=== PATIENT | male | born 1960 | race Caucasian/White ===

== ENCOUNTER 2019-04-24 05:30 | Day surgery (SDC) | payer MEDICAID ==
[2019-04-16 16:25] LABS: BASOPHILS % (AUTO) 0.4 % (0-1); EOSINOPHILS # (AUTO) 0.1 X10'3 (0-0.9); EOSINOPHILS % (AUTO) 0.7 % (0-6); LYMPHOCYTES % (AUTO) 9.5 % (21-51); MEAN CORPUSCULAR HGB CONC 34.1 g/dL (33.0-36.5); MEAN CORPUSCULAR VOLUME 99.7 FL (78-98); MEAN PLATELET VOLUME 9.6 FL (7.4-10.4); MONOCYTES # (AUTO) 0.8 X10'3 (0-0.9); MONOCYTES % (AUTO) 7.8 % (2-12); NEUTROPHILS # (AUTO) 8.4 X10'3 (1.8-7.7); NEUTROPHILS % (AUTO) 81.6 % (42-75); PRE OP PLATELET COUNT 215 X10'3 (140-440); RED BLOOD COUNT 4.41 X10'6 (4.70-6.10)
[2019-04-16 16:40] LABS: ALBUMIN 3.4 G/DL (3.4-5.0); ALBUMIN/GLOBULIN RATIO 0.9 (1.1-1.5); ALKALINE PHOSPHATASE 113 IU/L (46-116); BLOOD UREA NITROGEN 17 MG/DL (7-18); BUN/CREATININE RATIO 15.2 (5.4-32.0); CALCIUM 9.3 MG/DL (8.5-10.1); CHLORIDE 104 MMOL/L (99-107); CREATININE 1.12 MG/DL (0.60-1.10); PRE OP ALT 55 U/L (30-65); PRE OP ANION GAP 9 (8-16); PRE OP AST 24 U/L (10-37); PRE OP BILIRUB, TOTAL 0.4 MG/DL (0.0-1.0); PRE OP GLUCOSE 93 MG/DL (70-104); PRE OP SODIUM 142 MMOL/L (135-145); TOTAL CARBON DIOXIDE 29.3 MMOL/L (24-32); TOTAL PROTEIN 7.2 G/DL (6.4-8.2); eGFR 67 ML/MIN
[2019-04-16 16:41] LABS: PRE OP POTASSIUM 4.3 MMOL/L (3.4-5.1)
[~2019-04-24] VITALS: Ht 182.9 cm; Wt 108.4 kg
[2019-04-24] VITALS (8 sets, daily range): BP systolic 118–142; BP diastolic 73–96
[~2019-04-24 05:30] MED LIST: IBUP-1984 PO; IBUP-1985 PO; LISI-604 PO; famotidine 10mg tablet PO ONE; ringers solution, lacted 1,000 ML IV SCH
[2019-04-24] MEDS ORDERED: MESSAGE TO NURSING PO ONE (06:00)
[2019-04-24] MEDS ORDERED: cefazolin/dext.iso 2gm/100ml 100 ML IV ONE (06:05)
[2019-04-24] MEDS ORDERED: LIDOcaine 1% (10mg/ml) 2ml vial ONE (06:06)
[2019-04-24] MEDS ORDERED: triamcinolone acetonide 40mg/ml inj ONE (06:48)
[2019-04-24] MEDS ORDERED: BUPIVAcaine/PF 2.5 mg/ml (0.25%) 30ml vial ONE (06:48)
[2019-04-24] MEDS ORDERED: sevoflurane 250ml liquid IH ONE (07:12)
[2019-04-24] MEDS ORDERED: midazolam 2 mg/2 ml injection ONE (07:19)
[2019-04-24] MEDS ORDERED: fentaNYL/PF 50MCG/1 ML 2ML syringe ONE (07:19)
[2019-04-24] MEDS ORDERED: propofol inj 20 ML IV ONE (07:20)
[2019-04-24] MEDS ORDERED: acetaminophen 1,000mg/100ml IV 100 ML IV ONE ×2 (07:45→08:02)
[2019-04-24] MEDS ORDERED: ondansetron/PF 4mg/2ml inj IV PRN (07:50)
[2019-04-24] MEDS ORDERED: proCHLORperazine 10 MG/2 ml inj IV PRN (07:50)
[2019-04-24] MEDS ORDERED: morphine 4 MG/ML inj SYRINge IV PRN ×2 (07:50)
[2019-04-24] MEDS ORDERED: ringers solution, lacted 1,000 ML IV SCH (07:50)
[2019-04-24] MEDS ORDERED: meperidine/PF 25mg/ml syringe IV PRN ×2 (07:50)
--- NOTE | 2019-04-24 08:25 | NUR ---
Received from OR via [facility] accompanied by Anesthesiologist DR NORTH and report given by Anesthesiologist. PT DROWSY, DENIES PAIN, LEFT KNEE W/BIAS WRAP COVERING INCISION/DRSG, CDI. Addendum: 04/24/19 at 0843 by Cristiana Zuñiga RN Amended: Links added.
[2019-04-24] MEDS: meperidine/PF 25mg/ml syringe IV PRN ×2 (08:45→09:01)
--- NOTE | 2019-04-24 09:45 | NUR ---
D/C INSTRUCTIONS GIVEN AND GONE OVER W/PT WHO VERBALIZED UNDERSTANDING, PT D/CD TO HOME VIA W/C TO PRIVATE VEHICLE W/O INCIDENT. Addendum: 04/24/19 at 0954 by Cristiana Zuñiga RN Amended: Links added.
== END 2019-04-24 09:45 | disposition home or self-care (01) ==
LOC: PAS 05:30
PROVIDERS: ATTEND Orthopaedic Surgery
DX: S83.232A Complex tear of medial meniscus, current injury, left knee, initial encounter (principal); S83.282A Other tear of lateral meniscus, current injury, left knee, initial encounter; M94.262 Chondromalacia, left knee; M17.0 Bilateral primary osteoarthritis of knee; I10 Essential (primary) hypertension; G47.30 Sleep apnea, unspecified; F17.290 Nicotine dependence, other tobacco product, uncomplicated; E66.8 Other obesity; Z68.34 Body mass index [BMI] 34.0-34.9, adult; Z79.899 Other long term (current) drug therapy; Z98.890 Other specified postprocedural states; Z72.89 Other problems related to lifestyle; Z82.3 Family history of stroke; X58.XXXA Exposure to other specified factors, initial encounter; Y93.89 Activity, other specified; Y92.89 Other specified places as the place of occurrence of the external cause; Y99.8 Other external cause status
CPT/HCPCS: 29873; 29879; 29880; 36415; 80053; 82948; 85025; 93005; J0131; J2001; J2175; J2250; J2704; J3010; J3301; J3370; J3490; A4215; A4618; A6250; A6449; A7000; J7120

== ENCOUNTER 2019-10-28 09:53 | Emergency (ER) | payer MEDICAID ==
[~2019-10-28] VITALS: Ht 180.3 cm; Wt 109.5 kg
[~2019-10-28 09:53] MED LIST changes: -famotidine 10mg tablet PO ONE; -ringers solution, lacted 1,000 ML IV SCH
[2019-10-28 10:21] VITALS: BP 170/102
[2019-10-28] MEDS ORDERED: CHLO25CA10 PO (10:53)
== END 2019-10-28 11:03 | disposition home or self-care (01) ==
LOC: ER 09:53
DX: F10.20 Alcohol dependence, uncomplicated (principal); Z79.899 Other long term (current) drug therapy; Y90.9 Presence of alcohol in blood, level not specified
CPT/HCPCS: 99283

== ENCOUNTER 2020-10-05 10:40 | Day surgery (SDC) | payer MEDICAID ==
[2020-10-01 14:35] LABS: BASOPHILS % (AUTO) 0.5 % (0-1); EOSINOPHILS # (AUTO) 0.2 X10'3 (0-0.9); EOSINOPHILS % (AUTO) 2.9 % (0-6); MEAN CORPUSCULAR HEMOGLOBIN 31.3 PG (27.0-31.0); MEAN CORPUSCULAR HGB CONC 33.3 g/dL (33.0-36.5); MEAN CORPUSCULAR VOLUME 93.9 FL (78-98); MONOCYTES # (AUTO) 0.6 X10'3 (0-0.9); MONOCYTES % (AUTO) 9.2 % (2-12); NEUTROPHILS # (AUTO) 4.4 X10'3 (1.8-7.7); NEUTROPHILS % (AUTO) 71.4 % (42-75); PRE OP HEMATOCRIT 38.4 % (42.0-52.0); PRE OP HEMOGLOBIN 12.8 g/dL (14.0-17.9); PRE OP PLATELET COUNT 228 X10'3 (140-440); RED BLOOD COUNT 4.09 X10'6 (4.70-6.10)
[2020-10-01 14:42] LABS: CLARITY,URINE CLEAR (Clear); COLOR,URINE YELLOW (Yellow); GLUCOSE, URINE NEGATIVE (Neg); KETONES,URINE NEGATIVE (Neg); LEUKOCYTE ESTERASE ,URINE NEGATIVE (Neg); NITRITES, URINE NEGATIVE (Neg); OCCULT BLOOD,URINE NEGATIVE (Neg); PROTEIN,URINE NEGATIVE (Neg); UROBILINOGEN,URINE 0.2 E.U/dL (0.2-1.0)
[2020-10-01 14:43] LABS: UA COLLECTION TYPE NON-SPECIFIED
[2020-10-01 14:44] LABS: PRE OP PROTIME 10.6 SECONDS (9.0-12.0)
[2020-10-01 14:49] LABS: ALBUMIN 3.2 G/DL (3.4-5.0); ALBUMIN/GLOBULIN RATIO 0.8 (1.1-1.5); ALKALINE PHOSPHATASE 135 IU/L (46-116); BLOOD UREA NITROGEN 19 MG/DL (7-18); BUN/CREATININE RATIO 17.6 (5.4-32.0); CALCIUM 9.1 MG/DL (8.5-10.1); CHLORIDE 105 MMOL/L (99-107); CREATININE 1.08 MG/DL (0.60-1.10); PRE OP ALT 40 U/L (30-65); PRE OP ANION GAP 7 (8-16); PRE OP AST 21 U/L (10-37); PRE OP BILIRUB, TOTAL 0.3 MG/DL (0.0-1.0); PRE OP GLUCOSE 93 MG/DL (70-104); PRE OP POTASSIUM 3.9 MMOL/L (3.4-5.1); PRE OP SODIUM 142 MMOL/L (135-145); TOTAL CARBON DIOXIDE 29.6 MMOL/L (24-32); TOTAL PROTEIN 7.2 G/DL (6.4-8.2); eGFR 70 ML/MIN
[2020-10-05] VITALS (7 sets, daily range): BP systolic 114–168; BP diastolic 62–80
[~2020-10-05] VITALS: Ht 182.9 cm; Wt 108.4 kg
[~2020-10-05 10:40] MED LIST changes: +ATOR40TA72 PO; +CHOL20002 PO; +FOLI0.4T6 PO; -IBUP-1984 PO; -IBUP-1985 PO; +KETO5DRO11 EACHEYE; -LISI-604 PO; +LISI-790 PO; +PANT40TA54 PO; +THIA100T66 PO; +VENL75CA61 PO; +cefazolin/dext.iso 2gm/100ml IV ONE; +famotidine 20mg tablet PO ONE; +ringers solution, lacted 1,000 ML IV SCH
[2020-10-05] MEDS ORDERED: morphine 4 MG/ML inj SYRINge IV PRN (12:25)
[2020-10-05] MEDS ORDERED: ondansetron/PF 4mg/2ml inj IV PRN (12:25)
[2020-10-05] MEDS ORDERED: ringers solution, lacted 1,000 ML IV SCH (12:25)
[2020-10-05] MEDS ORDERED: hydrALAZINE 20mg/ml inj. IV PRN (12:25)
[2020-10-05] MEDS ORDERED: morphine 2 MG/ML inj. syringe IV PRN (12:25)
[2020-10-05] MEDS ORDERED: fentaNYL/PF 50MCG/1 ML 2ML syringe IV PRN ×2 (12:25)
[2020-10-05] MEDS ORDERED: labetalol 20mg/4ml (5mg/ml) syringe IV PRN (12:25)
[2020-10-05] MEDS ORDERED: fentaNYL/PF 50MCG/1 ML 2ML syringe ONE (13:05)
[2020-10-05] MEDS ORDERED: midazolam 1 mg/ML 2ml injection ONE (13:05)
[2020-10-05] MEDS ORDERED: LIDOcaine 2% (20mg/ml) 5ml vial ONE (13:07)
[2020-10-05] MEDS ORDERED: rocuronium 10mg/ml inj IV ONE (13:07)
[2020-10-05] MEDS ORDERED: ondansetron/PF 4mg/2ml inj ONE (13:07)
[2020-10-05] MEDS ORDERED: propofol inj 20 ML IV ONE (13:07)
[2020-10-05] MEDS ORDERED: dexamethasone sod phosphate 10mg/ml inj ONE (13:20)
[2020-10-05] MEDS ORDERED: glycopyrrolate 0.2mg/ml inj ONE (13:20)
[2020-10-05] MEDS ORDERED: sevoflurane 250ml liquid IH ONE (13:20)
[2020-10-05] MEDS ORDERED: neostigmine methylsulfate 1 MG/ML 10ml vial ONE (13:40)
--- NOTE | 2020-10-05 14:10 | NUR ---
ADMITTED TO PACU FROM OR ACCOMPANIED BY ANESTHESIA. INTIAL PHYSICAL ASSESSMENT DONE AND RECORDED. REPORT RECEIVED FROM ANESTHESIA.
--- NOTE | 2020-10-05 15:05 | NUR ---
DISCHARGE CRITERIA MET, DISCHARGE INSTRUCTIONS GIVEN, DEMONSTRATES VERBAL UNDERSTANDING. DISCHARGED HOME IN GOOD CONDITION.
== END 2020-10-05 15:05 | disposition home or self-care (01) ==
LOC: PAS 10:40
PROVIDERS: ATTEND Surgery
DX: T81.31XA Disruption of external operation (surgical) wound, not elsewhere classified, initial encounter (principal); I10 Essential (primary) hypertension; E78.5 Hyperlipidemia, unspecified; F41.9 Anxiety disorder, unspecified; G47.30 Sleep apnea, unspecified; F32.9 Major depressive disorder, single episode, unspecified; K21.9 Gastro-esophageal reflux disease without esophagitis; E66.9 Obesity, unspecified; Z68.32 Body mass index [BMI] 32.0-32.9, adult; Z79.01 Long term (current) use of anticoagulants; Z79.899 Other long term (current) drug therapy; Z20.822 Contact with and (suspected) exposure to COVID-19; Z98.890 Other specified postprocedural states; Y83.8 Other surgical procedures as the cause of abnormal reaction of the patient, or of later complication, without mention of misadventure at the time of the procedure; Y92.89 Other specified places as the place of occurrence of the external cause
CPT/HCPCS: 11042; 36415; 71046; 80053; 81003; 82948; 85025; 85610; 85730; 87070; 87075; 87077; 87186; J1100; J2001; J2250; J2405; J2704; J2710; J3010; J7030; U0003; U0005; A4618; A6253; A6446; A7000; J3490; J7120

== ENCOUNTER 2021-05-16 11:50 | Inpatient (IN) | payer MEDICAID ==
[~2021-05-16] VITALS: Ht 365.8 cm; Wt 116.0 kg
[~2021-05-16 11:50] MED LIST changes: -LISI-790 PO; +LISI5TAB22 PO; -cefazolin/dext.iso 2gm/100ml IV ONE; -famotidine 20mg tablet PO ONE; -ringers solution, lacted 1,000 ML IV SCH
[2021-05-16] MEDS ORDERED: normal saline 1000ML IV soln IVB ONE (15:00)
[2021-05-16 15:48] LABS: BASOPHILS # (AUTO) 0.1 X10'3 (0-0.2); BASOPHILS % (AUTO) 0.9 % (0-1); EOSINOPHILS # (AUTO) 0.2 X10'3 (0-0.9); EOSINOPHILS % (AUTO) 2.9 % (0-6); HEMOGLOBIN 13.9 g/dl (14.0-17.9); NEUTROPHILS # (AUTO) 5.1 X10'3 (1.8-7.7)
[2021-05-16 15:50] LABS: HEMATOCRIT 41.5 % (42.0-52.0); LYMPHOCYTES # (AUTO) 1.1 X10'3 (1.1-4.8); LYMPHOCYTES % (AUTO) 16.1 % (21-51); MEAN CORPUSCULAR HEMOGLOBIN 31.6 PG (27.0-31.0); MEAN CORPUSCULAR HGB CONC 33.5 g/dL (33.0-36.5); MEAN PLATELET VOLUME 11.3 FL (7.4-10.4); MONOCYTES # (AUTO) 0.4 X10'3 (0-0.9); MONOCYTES % (AUTO) 6.3 % (2-12); NEUTROPHILS % (AUTO) 73.8 % (42-75); PLATELET COUNT 225 X10'3 (140-440); RED BLOOD COUNT 4.42 X10'6 (4.70-6.10); WHITE BLOOD COUNT 6.9 X10'3 (4.5-11.0)
[2021-05-16] MEDS ORDERED: LISI10TA27 PO (15:57)
[2021-05-16 16:18] LABS: ALANINE AMINOTRANSFERASE 31 U/L (12-78); ALBUMIN 3.7 G/DL (3.4-5.0); ALBUMIN/GLOBULIN RATIO 1.3 (1.1-1.5); ALKALINE PHOSPHATASE 153 IU/L (46-116); ANION GAP 11 (8-16); ASPARTATE AMINO TRANSFERASE 16 U/L (10-37); BILIRUBIN,TOTAL 0.7 MG/DL (0.1-1.0); BLOOD UREA NITROGEN 18 MG/DL (7-18); CALCIUM 8.9 MG/DL (8.5-10.1); CHLORIDE 105 MMOL/L (99-107); GLUCOSE 90 MG/DL (70-104); LIPASE 74 U/L (73-393); POTASSIUM 4.3 MMOL/L (3.5-5.1); SODIUM 144 MMOL/L (135-145); TOTAL CARBON DIOXIDE 28.2 MMOL/L (24-32); TOTAL PROTEIN 6.5 G/DL (6.4-8.2); eGFR 62 ML/MIN
[2021-05-16 17:09] LABS: LARGE PLATELETS FEW; PLATELET ESTIMATE NORMAL
[2021-05-16] MEDS ORDERED: potassium CL 10mEq/100ml bag 100 ML IV PRN (17:35)
[2021-05-16] MEDS ORDERED: ondansetron/PF 4mg/2ml inj IV PRN (17:35)
[2021-05-16] MEDS ORDERED: magnesium 4gm in 100ml NS 100 ML IV PRN (17:35)
[2021-05-16] MEDS ORDERED: acetaminophen 325mg tablet PO PRN ×2 (17:35)
[2021-05-16] MEDS ORDERED: HYDROcodone/acetaminophen 5mg/325mg tablet PO PRN (17:35)
[2021-05-16] MEDS ORDERED: morphine 2 MG/ML inj. syringe IV PRN ×2 (17:35)
[2021-05-16] MEDS ORDERED: mag hydrox/Alum hydrox/simeth 30ml oral suspension PO PRN (17:35)
[2021-05-16] MEDS ORDERED: magnesium 2GM in 50ml NS 50 ML IV PRN (17:35)
[2021-05-16] MEDS ORDERED: diphenhydrAMINE 25mg capsule PO PRN (17:35)
[2021-05-16] MEDS ORDERED: bisacodyl 10mg suppository rectal RC PRN (17:35)
[2021-05-16] MEDS ORDERED: HYDROcodone/acetaminophen 10/325mg tab PO PRN (17:35)
[2021-05-16] MEDS ORDERED: magnesium hydroxide 30ml (MOM) UD suspension PO PRN (17:35)
[2021-05-16] MEDS ORDERED: magnesium Cl slow-release 64mg tablet PO PRN (17:35)
[2021-05-16] MEDS ORDERED: potassium Cl 20 mEq SR tablet PO PRN ×2 (17:35)
[2021-05-16] MEDS ORDERED: acetaminophen 650mg rectal suppository RC PRN (17:35)
[2021-05-16] MEDS ORDERED: LORazepam 2 mg/ml vial IV PRN (17:50)
[2021-05-16 18:30] LABS: HEMOGLOBIN A1C 5.9 % (4.5-6.2)
[2021-05-16] MEDS: normal saline 1000ml 1,000 ML IV SCH (18:50)
[2021-05-16] MEDS: thiamine 100mg tablet PO SCH (18:55)
[2021-05-16 19:05] LABS: CLARITY,URINE CLEAR (Clear); COLOR,URINE YELLOW (Yellow); GLUCOSE, URINE NEGATIVE (Neg); KETONES,URINE NEGATIVE (Neg); LEUKOCYTE ESTERASE ,URINE NEGATIVE (Neg); NITRITES, URINE NEGATIVE (Neg); OCCULT BLOOD,URINE NEGATIVE (Neg); PH,URINE 5.5 (4.8-8.0); PROTEIN,URINE NEGATIVE (Neg); UROBILINOGEN,URINE 0.2 E.U/dL (0.2-1.0)
[2021-05-16 19:14] LABS: UA COLLECTION TYPE CLN CATCH MIDSTREAM
[2021-05-16] MEDS: K and/or MAG REPLACEMENT MC SCH (20:00)
[2021-05-16] MEDS: docusate sod 100mg capsule PO SCH (20:09)
[2021-05-16 20:55] VITALS: BP 123/76
--- NOTE | 2021-05-16 20:59 | NUR ---
Report given by another HOME DEPOT REPblock hand who took pt to floor
[2021-05-17 00:02] VITALS: BP 100/77
[2021-05-17] MEDS: normal saline 1000ml 1,000 ML IV SCH ×3 (03:44→20:56)
--- NOTE | 2021-05-17 06:18 | NUR ---
Problems reprioritized. Patient report given, questions answered & plan of care reviewed with JEANNIE Coles.
[2021-05-17 06:42] LABS: BASOPHILS % (AUTO) 0.3 % (0-1); EOSINOPHILS # (AUTO) 0.2 X10'3 (0-0.9); HEMATOCRIT 37.9 % (42.0-52.0); HEMOGLOBIN 12.6 g/dl (14.0-17.9); LYMPHOCYTES % (AUTO) 15.7 % (21-51); MEAN CORPUSCULAR HEMOGLOBIN 31.5 PG (27.0-31.0); MEAN CORPUSCULAR HGB CONC 33.2 g/dL (33.0-36.5); MEAN CORPUSCULAR VOLUME 94.8 FL (78-98); MEAN PLATELET VOLUME 10.4 FL (7.4-10.4); MONOCYTES # (AUTO) 0.5 X10'3 (0-0.9); MONOCYTES % (AUTO) 8.4 % (2-12); NEUTROPHILS # (AUTO) 4.5 X10'3 (1.8-7.7); NEUTROPHILS % (AUTO) 72.6 % (42-75); PLATELET COUNT 173 X10'3 (140-440); RED CELL DISTRIBUTION WIDTH 13.9 % (11.5-14.5); WHITE BLOOD COUNT 6.2 X10'3 (4.5-11.0)
[2021-05-17 07:00] VITALS: BP 114/55
[2021-05-17 07:13] LABS: ALANINE AMINOTRANSFERASE 26 U/L (12-78); ALBUMIN 2.7 G/DL (3.4-5.0); ALKALINE PHOSPHATASE 123 IU/L (46-116); ANION GAP 10 (8-16); ASPARTATE AMINO TRANSFERASE 12 U/L (10-37); BILIRUBIN,TOTAL 0.7 MG/DL (0.1-1.0); BLOOD UREA NITROGEN 16 MG/DL (7-18); BUN/CREATININE RATIO 13.9 (5.4-32.0); CALCIUM 8.1 MG/DL (8.5-10.1); CHLORIDE 107 MMOL/L (99-107); CHOL/HDL RATIO 2.9 (0.00-4.99); CHOLESTEROL 103 MG/DL (0-200); CREATININE 1.15 MG/DL (0.60-1.10); GLUCOSE 94 MG/DL (70-104); HDL CHOLESTEROL 35 MG/DL (35-60); LDL CHOLESTEROL 52 MG/DL (50-100); MAGNESIUM 1.8 MG/DL (1.5-2.4); PHOSPHORUS 3.5 MG/DL (2.3-4.5); POTASSIUM 4.4 MMOL/L (3.5-5.1); SODIUM 142 MMOL/L (135-145); TOTAL CARBON DIOXIDE 25.1 MMOL/L (24-32); TOTAL PROTEIN 5.5 G/DL (6.4-8.2); TRIGLYCERIDES 83 MG/DL (20-135); eGFR 65 ML/MIN
[2021-05-17 07:26] VITALS: BP 122/68
[2021-05-17] MEDS: atorvastatin 20mg tablet PO SCH (07:28)
[2021-05-17] MEDS: lisinopril 10 MG tablet PO SCH (07:29)
[2021-05-17] MEDS: thiamine 100mg tablet PO SCH (07:29)
[2021-05-17] MEDS: cholecalciferol (vitamin D3) 1,000 unit (25mcg) tablet PO SCH (07:29)
[2021-05-17] MEDS: folic acid 1mg tablet PO SCH (07:29)
[2021-05-17] MEDS: K and/or MAG REPLACEMENT MC SCH ×2 (07:30→20:00)
[2021-05-17] MEDS: docusate sod 100mg capsule PO SCH ×2 (07:30→20:55)
--- NOTE | 2021-05-17 10:40 | NUR ---
Message: Sammy Up [phone] Apparently here are 2 charts for this pt. in computer. IN another chart was told that oral contrast and abd CT was ordered. It was not given. Would you like pt. to have a CT? Sharyn [phone]
[2021-05-17 11:39] VITALS: BP 150/90
--- NOTE | 2021-05-17 12:31 | NUR ---
Spoke to Surgeon Toi, he is ok with CT in Am - no quick prep, ok for pt. to eat, NPO after 0000. will review CT in Am and maybe surgery tomorrow.
[2021-05-17 18:00] VITALS: BP 112/69
--- NOTE | 2021-05-17 18:02 | NUR ---
Gave report to Melanie DENNIS.
--- NOTE | 2021-05-17 18:10 | NUR ---
Patient in room [facility]. I have received report from JEANNIE Coles and had the opportunity to ask questions and assume patient care.
[2021-05-17] MEDS: heparin, porcine 5000 units/ml vial SQ SCH (20:55)
[2021-05-17] MEDS: diatr meglu/diatrizoate 30ml oral sol.-(3 dose) bottle PO SCH (23:05)
--- NOTE | 2021-05-17 23:24 | NUR ---
Student documentation: I have reviewed interventions, assessments performed and documented by Janice BRODERICK [facility] [place].
[2021-05-18] VITALS: BP 111/75
--- NOTE | 2021-05-18 06:15 | NUR ---
Problems reprioritized. Patient report given, questions answered & plan of care reviewed with JEANNIE Coles. Aware of patient's CT w/ contrast today.
[2021-05-18] MEDS: normal saline 1000ml 1,000 ML IV SCH ×2 (06:20→19:30)
[2021-05-18 06:49] LABS: BASOPHILS % (AUTO) 0.4 % (0-1); EOSINOPHILS # (AUTO) 0.2 X10'3 (0-0.9); EOSINOPHILS % (AUTO) 3.1 % (0-6); HEMATOCRIT 36.5 % (42.0-52.0); HEMOGLOBIN 12.2 g/dl (14.0-17.9); LYMPHOCYTES # (AUTO) 0.9 X10'3 (1.1-4.8); LYMPHOCYTES % (AUTO) 15.7 % (21-51); MEAN CORPUSCULAR HEMOGLOBIN 31.5 PG (27.0-31.0); MEAN CORPUSCULAR HGB CONC 33.5 g/dL (33.0-36.5); MEAN PLATELET VOLUME 10.9 FL (7.4-10.4); MONOCYTES # (AUTO) 0.5 X10'3 (0-0.9); NEUTROPHILS # (AUTO) 4.3 X10'3 (1.8-7.7); NEUTROPHILS % (AUTO) 72.8 % (42-75); PLATELET COUNT 156 X10'3 (140-440); RED BLOOD COUNT 3.88 X10'6 (4.70-6.10); RED CELL DISTRIBUTION WIDTH 13.7 % (11.5-14.5); WHITE BLOOD COUNT 5.9 X10'3 (4.5-11.0)
[2021-05-18] MEDS: diatr meglu/diatrizoate 30ml oral sol.-(3 dose) bottle PO SCH ×2 (06:52→09:56)
[2021-05-18] MEDS: atorvastatin 20mg tablet PO SCH (06:54)
[2021-05-18] MEDS: thiamine 100mg tablet PO SCH (06:55)
[2021-05-18] MEDS: folic acid 1mg tablet PO SCH (06:55)
[2021-05-18] MEDS: cholecalciferol (vitamin D3) 1,000 unit (25mcg) tablet PO SCH (06:55)
[2021-05-18] MEDS: K and/or MAG REPLACEMENT MC SCH ×2 (06:56→19:30)
[2021-05-18] MEDS: docusate sod 100mg capsule PO SCH ×2 (06:56→19:45)
[2021-05-18] MEDS: heparin, porcine 5000 units/ml vial SQ SCH ×2 (06:56→19:45)
[2021-05-18] MEDS: lisinopril 10 MG tablet PO SCH (07:01)
[2021-05-18 07:03] LABS: ALANINE AMINOTRANSFERASE 26 U/L (12-78); ALBUMIN/GLOBULIN RATIO 1.2 (1.1-1.5); ANION GAP 11 (8-16); ASPARTATE AMINO TRANSFERASE 13 U/L (10-37); BILIRUBIN,TOTAL 0.4 MG/DL (0.1-1.0); BLOOD UREA NITROGEN 18 MG/DL (7-18); BUN/CREATININE RATIO 16.5 (5.4-32.0); CALCIUM 8.4 MG/DL (8.5-10.1); CHLORIDE 109 MMOL/L (99-107); CREATININE 1.09 MG/DL (0.60-1.10); GLUCOSE 100 MG/DL (70-104); MAGNESIUM 1.9 MG/DL (1.5-2.4); PHOSPHORUS 3.8 MG/DL (2.3-4.5); POTASSIUM 4.4 MMOL/L (3.5-5.1); SODIUM 146 MMOL/L (135-145); TOTAL CARBON DIOXIDE 25.9 MMOL/L (24-32); TOTAL PROTEIN 5.6 G/DL (6.4-8.2); eGFR 69 ML/MIN
--- NOTE | 2021-05-18 07:14 | NUR ---
Message: Jeovanny Christianson 347A Pt. NPO but has had fluids running at 100/hr for several days. edema in hands and NA and CL in labs elevated. May I reduce IV fluids? Thank myra Coles [phone]
[2021-05-18 09:19] LABS: PLATELET ESTIMATE NORMAL
[2021-05-18 09:20] LABS: LARGE PLATELETS FEW
--- NOTE | 2021-05-18 09:38 | NUR ---
Gave report to Orion DENNIS.
[2021-05-18 11:00] VITALS: BP 144/79
--- NOTE | 2021-05-18 12:05 | NUR ---
Dr. Cm notified that patient CT results are in.
--- NOTE | 2021-05-18 12:45 | NUR ---
PRESSURE ULCER EDUCATION: DEFINITION: A pressure ulcer is an area of skin that breaks down when you stay in one position too long. The constant pressure against the skin reduces the blood flow to that area and the affected tissue dies. CAUSES: "Being bedridden or in a wheelchair "Fragile skin "Having a chronic condition, such as diabetes or vascular disease "Inability to move certain parts of your body without assistance "Older age "Incontinence of urine or stool SYMPTOMS: "A reddened area that DOES NOT turn white when pressed on - this can be the beginning of a pressure ulcer "A blister, deep sore or a crater - these can be advanced pressure ulcers FIRST AID: "Relieve the pressure on this area "Keep the area clean and dry "Call your primary doctor if you see any of the above symptoms "DO NOT massage the area "DO NOT use a donut shaped or ring shaped pillow- these actually interfere with the blood flow and cause complications PREVENTION: "Check for pressure ulcers everyday "Change position at least every two hours to relieve pressure "Use items that help relieve pressure- pillows, sheepskin, foam padding, and powders. "Keep skin clean and dry "Eat healthy well balanced meals "Exercise daily IF YOU SEE ANY OF THESE SYMPTOMS WHILE IN THE HOSPITAL - TELL YOUR NURSE IMMEDIATELY. IF YOU SEE ANY OF THESE SYMPTOMS WHILE AT HOME OR HAVE ANY QUESTIONS OR CONCERNS ABOUT PRESSURE ULCERS - CALL YOUR PRIMARY DOCTOR IMMEDIATELY. Addendum: 05/18/21 at 1245 by Kaylie Herbert RN Amended: Links added.
[2021-05-18 18:00] VITALS: BP 150/90
[2021-05-18 21:57] VITALS: BP 150/90
[2021-05-18 22:23] VITALS: BP 150/90
[2021-05-19] VITALS: BP 149/89
[2021-05-19] MEDS: normal saline 1000ml 1,000 ML IV SCH ×2 (05:35→15:35)
[2021-05-19 06:36] LABS: BASOPHILS % (AUTO) 0.4 % (0-1); EOSINOPHILS # (AUTO) 0.1 X10'3 (0-0.9); EOSINOPHILS % (AUTO) 2.5 % (0-6); HEMATOCRIT 37.7 % (42.0-52.0); HEMOGLOBIN 12.7 g/dl (14.0-17.9); LYMPHOCYTES # (AUTO) 0.8 X10'3 (1.1-4.8); LYMPHOCYTES % (AUTO) 14.8 % (21-51); MEAN CORPUSCULAR HEMOGLOBIN 31.5 PG (27.0-31.0); MEAN CORPUSCULAR HGB CONC 33.7 g/dL (33.0-36.5); MEAN CORPUSCULAR VOLUME 93.5 FL (78-98); MEAN PLATELET VOLUME 10.4 FL (7.4-10.4); MONOCYTES # (AUTO) 0.4 X10'3 (0-0.9); MONOCYTES % (AUTO) 6.7 % (2-12); NEUTROPHILS # (AUTO) 4.1 X10'3 (1.8-7.7); NEUTROPHILS % (AUTO) 75.6 % (42-75); PLATELET COUNT 149 X10'3 (140-440); RED BLOOD COUNT 4.03 X10'6 (4.70-6.10); RED CELL DISTRIBUTION WIDTH 13.6 % (11.5-14.5); WHITE BLOOD COUNT 5.4 X10'3 (4.5-11.0)
[2021-05-19 06:58] LABS: ALANINE AMINOTRANSFERASE 24 U/L (12-78); ALBUMIN 3.2 G/DL (3.4-5.0); ALBUMIN/GLOBULIN RATIO 1.2 (1.1-1.5); ALKALINE PHOSPHATASE 137 IU/L (46-116); ANION GAP 9 (8-16); ASPARTATE AMINO TRANSFERASE 13 U/L (10-37); BILIRUBIN,TOTAL 0.9 MG/DL (0.1-1.0); BLOOD UREA NITROGEN 16 MG/DL (7-18); CALCIUM 8.6 MG/DL (8.5-10.1); CHLORIDE 107 MMOL/L (99-107); CREATININE 1.23 MG/DL (0.60-1.10); GLUCOSE 74 MG/DL (70-104); PHOSPHORUS 3.6 MG/DL (2.3-4.5); POTASSIUM 4.2 MMOL/L (3.5-5.1); SODIUM 144 MMOL/L (135-145); TOTAL CARBON DIOXIDE 28.1 MMOL/L (24-32); TOTAL PROTEIN 5.8 G/DL (6.4-8.2); eGFR 60 ML/MIN
[2021-05-19 07:00] VITALS: BP 141/80
[2021-05-19] MEDS: K and/or MAG REPLACEMENT MC SCH ×2 (08:00→19:22)
[2021-05-19] MEDS: folic acid 1mg tablet PO SCH (08:57)
[2021-05-19] MEDS: cholecalciferol (vitamin D3) 1,000 unit (25mcg) tablet PO SCH (08:57)
[2021-05-19] MEDS: thiamine 100mg tablet PO SCH (08:57)
[2021-05-19] MEDS: docusate sod 100mg capsule PO SCH ×2 (08:57→19:30)
[2021-05-19] MEDS: atorvastatin 20mg tablet PO SCH (08:57)
[2021-05-19] MEDS: lisinopril 10 MG tablet PO SCH (08:58)
[2021-05-19] MEDS: heparin, porcine 5000 units/ml vial SQ SCH ×2 (08:59→19:30)
--- NOTE | 2021-05-19 17:44 | NUR ---
PAGER ID: [phone] MESSAGE: Alexy Up [phone]- Pt's IV infiltrated, 6 tries, and no luck. Can we saline lock him? He is eating and drinking OK. Thank you. Jonna DENNISsurgical aide
[2021-05-19 18:00] VITALS: BP 126/85
[2021-05-19 23:18] VITALS: BP 126/85
[2021-05-20] VITALS: BP 121/75
[2021-05-20] MEDS: ceFAZolin/D5W- 1GM premix 50 ML IV SCH ×2 (02:49→08:24)
[2021-05-20] MEDS: normal saline 1000ml 1,000 ML IV SCH ×2 (02:50→11:35)
--- NOTE | 2021-05-20 05:50 | NUR ---
IV line out, call made to ER, and the ER nurse came and placed the IV line on the patient's right wrist. No sign of infiltration noted, IV site patent and asymptomatic, Sodium Chloride normal Saline running at this time.
[2021-05-20 07:00] VITALS: BP 110/76
[2021-05-20 07:28] LABS: BASOPHILS % (AUTO) 0.4 % (0-1); EOSINOPHILS # (AUTO) 0.1 X10'3 (0-0.9); EOSINOPHILS % (AUTO) 2.3 % (0-6); HEMATOCRIT 39.3 % (42.0-52.0); HEMOGLOBIN 13.3 g/dl (14.0-17.9); LYMPHOCYTES # (AUTO) 0.9 X10'3 (1.1-4.8); LYMPHOCYTES % (AUTO) 15.1 % (21-51); MEAN CORPUSCULAR HEMOGLOBIN 31.6 PG (27.0-31.0); MEAN CORPUSCULAR HGB CONC 33.9 g/dL (33.0-36.5); MEAN CORPUSCULAR VOLUME 93.2 FL (78-98); MEAN PLATELET VOLUME 10.5 FL (7.4-10.4); MONOCYTES # (AUTO) 0.4 X10'3 (0-0.9); NEUTROPHILS # (AUTO) 4.5 X10'3 (1.8-7.7); NEUTROPHILS % (AUTO) 75.2 % (42-75); PLATELET COUNT 171 X10'3 (140-440); RED BLOOD COUNT 4.22 X10'6 (4.70-6.10); RED CELL DISTRIBUTION WIDTH 13.7 % (11.5-14.5)
[2021-05-20 07:46] LABS: ALANINE AMINOTRANSFERASE 30 U/L (12-78); ALBUMIN 3.3 G/DL (3.4-5.0); ALBUMIN/GLOBULIN RATIO 1.2 (1.1-1.5); ALKALINE PHOSPHATASE 145 IU/L (46-116); ANION GAP 9 (8-16); ASPARTATE AMINO TRANSFERASE 15 U/L (10-37); BILIRUBIN,TOTAL 0.9 MG/DL (0.1-1.0); BLOOD UREA NITROGEN 17 MG/DL (7-18); BUN/CREATININE RATIO 13.5 (5.4-32.0); CALCIUM 8.6 MG/DL (8.5-10.1); CHLORIDE 106 MMOL/L (99-107); CREATININE 1.26 MG/DL (0.60-1.10); GLUCOSE 93 MG/DL (70-104); MAGNESIUM 2.1 MG/DL (1.5-2.4); PHOSPHORUS 3.6 MG/DL (2.3-4.5); POTASSIUM 4.1 MMOL/L (3.5-5.1); SODIUM 145 MMOL/L (135-145); TOTAL CARBON DIOXIDE 30.3 MMOL/L (24-32); TOTAL PROTEIN 6.1 G/DL (6.4-8.2); eGFR 58 ML/MIN
[2021-05-20] MEDS: K and/or MAG REPLACEMENT MC SCH (08:00)
[2021-05-20] MEDS: atorvastatin 20mg tablet PO SCH (08:18)
[2021-05-20] MEDS: thiamine 100mg tablet PO SCH (08:18)
[2021-05-20] MEDS: folic acid 1mg tablet PO SCH (08:18)
[2021-05-20] MEDS: lisinopril 10 MG tablet PO SCH (08:18)
[2021-05-20] MEDS: docusate sod 100mg capsule PO SCH (08:19)
[2021-05-20] MEDS: cholecalciferol (vitamin D3) 1,000 unit (25mcg) tablet PO SCH (08:19)
[2021-05-20] MEDS: heparin, porcine 5000 units/ml vial SQ SCH (08:24)
[2021-05-20 11:44] VITALS: BP 110/74
== END 2021-05-20 13:55 | disposition home or self-care (01) | DRG 254 ==
LOC: ER 11:51 → ED HOLD 17:40 → SUR 3N 21:05
PROVIDERS: ADMIT Family Medicine; ATTEND Family Medicine
DX: K43.9 Ventral hernia without obstruction or gangrene (principal); K63.2 Fistula of intestine; E66.9 Obesity, unspecified; F17.220 Nicotine dependence, chewing tobacco, uncomplicated; E78.5 Hyperlipidemia, unspecified; Z20.822 Contact with and (suspected) exposure to COVID-19; F10.20 Alcohol dependence, uncomplicated; I10 Essential (primary) hypertension; Z79.899 Other long term (current) drug therapy; Z82.3 Family history of stroke
CPT/HCPCS: 36415; 71045; 74176; 80053; 80061; 81003; 83036; 83605; 83690; 83735; 84100; 85008; 85025; 86885; 86900; 86901; 87040; 87081; 87635; 93005; 99285; G0378; J0690; J1644; J7030; Q9963